=== PATIENT | male | born 1940 | race Asian ===

== ENCOUNTER 2019-10-20 11:15 | Outpatient (CLI) | payer OTHER ==
[2019-10-20] MEDS ORDERED: BARIUM SULFATE 135 ML SUSP.RECON (E-Z-HD) PO ONE (11:44)
== END 2019-10-20 20:20 | disposition home or self-care (01) ==
LOC: SRD 11:15
PROVIDERS: ATTEND Family Medicine
DX: R13.10 Dysphagia, unspecified (principal)
CPT/HCPCS: 74230; 92611-GN